=== PATIENT | female | born 1975 | race Caucasian/White ===

== ENCOUNTER 2021-01-12 03:22 | Emergency (ER) | payer SELFPAY ==
[~2021-01-12] VITALS: Ht 167.6 cm; Wt 94.5 kg
[2021-01-12] MEDS ORDERED: IV NORMAL SALINE 1000ML BAG 1,000 ML IV ONE ×2 (03:45)
--- NOTE | 2021-01-12 03:55 | PHYS DOC ---
Past Medical History Past Medical History: No Pertinent History Past Surgical History: No Surgical History Drug Use: Heroin General Adult EDM: Chief Complaint: OVERDOSE HPI: HPI: Patient is a 45 year old female who presents to the emergency department after [place]. Patient states that she took a "blue pill "and that is lasting she remembers. She denies any drug use, although security did find a bag of heroin on her person. She was given Narcan in the field when she was unresponsive with EMS with more arousability afterwards. Patient states now she feels embarrassed and anxious, she is adamantly refusing any medical work-up. She denies loss of consciousness. The patient denies nausea, vomiting, fever, chills, chest pain, shortness of breath, abdominal pain, urinary symptoms, cough or any other complaints. Review of Systems: Review of Systems: ROS otherwise negative except for what was mentioned in HPI Heart Score: C/O Chest Pain: No Current Medications: Current Medications Medications (Trade) Dose Ordered Sig/Zana Start Time Stop Time Status Last Admin Dose Admin Sodium Chloride 1,000 ml @ 1,000 mls/hr 1X ONCE 01/12/21 03:45 01/12/21 04:44 UNV Physical Exam: PE: Constitutional: Anxious, mild distress. HENT: Hematoma is appreciated to the left side of the forehead Eyes: PERRLA, EOMI, conjunctiva normal, no discharge. Neck: Normal range of motion, supple, no stridor. Cardiovascular: Tachycardic, 2+ radial pulse Lungs & Thorax: No respiratory distress, symmetrical expansion. Bilateral breath sounds clear to auscultation Abdomen: Soft, no tenderness Skin: Warm, dry. Extremities: No tenderness, no cyanosis, ROM intact, no edema. Neurologic: Alert and oriented X 3, normal motor function, normal sensory function, no focal deficits noted.. GCS 15. Psychologic: Tearful Current Patient Data: Vital Signs: Vital Signs Date Time Temp Pulse Resp B/P (MAP) Pulse Ox O2 Delivery O2 Flow Rate FiO2 01/12/21 03:22 98.7 141 22 166/93 (117) 100 Room Air 98.7 EKG: EKG: Time read: 0404 Sinus tachycardia rate of 127, no ST-T wave changes, no ectopic beats, normal axis, normal OK, QRS, and QTc intervals. Impression: Sinus tachycardia. No STEMI. Interpreted by me, Trino Schumacher D.O. Course & Med Decision Making: Course & Med Decision Making The patient does have medical decision-making capacity at this time, she is refusing labs and imaging. She is willing to stay for observation After Narcan. Given history of taking an unknown pill, tachycardia is likely due to coingestions with a stimulant. She was given 2 L of IV fluids patients hr down to 118, she is requesting discharge, I advised further observation but she has capacity and would like to leave. Understands leaving prior to obs period ending could result in and she reiterated and accepted these risks. Advised cessation of drugs. My Orders - TRINO SCHUMACHER DO Procedure Category Date Status Time Urine Test [facility] 01/12/21 In Process 03:28 Iv Normal Saline PHA 01/12/21 Complete 1000ml Bag (Iv Sodium 03:45 Iv Normal Saline PHA 01/12/21 Complete 1000ml Bag (Iv Sodium 03:45 Departure Departure Impression: Primary Impression: Heroin overdose Disposition: 01 HOME / SELF CARE / HOMELESS Patient Instructions: Heroin Abuse and Withdrawal Additional Instructions: You were seen in the emergency department and your health condition was deemed not to require admission to the hospital. It is important to realize that we can only evaluate you during the time that you are in her department. Occasionally health conditions can worsen upon leaving the emergency department. If this were to happen, please return to and allow us the opportunity to reevaluate you. It is a pleasure to take care of your health needs. Return to the ER if your symptoms worsen, do not improve, or if you develop additional symptoms that are concerning to you TRINO SCHUMACHER DO Jan 12, 2021 03:55
[2021-01-12 06:57] VITALS: BP 153/71
== END 2021-01-12 07:10 | disposition home or self-care (01) ==
LOC: ER 03:22
DX: T40.1X1A Poisoning by heroin, accidental (unintentional), initial encounter (principal); S00.83XA Contusion of other part of head, initial encounter; Y92.89 Other specified places as the place of occurrence of the external cause; F11.20 Opioid dependence, uncomplicated; X58.XXXA Exposure to other specified factors, initial encounter; Y93.89 Activity, other specified; Y99.8 Other external cause status
CPT/HCPCS: 96360; 99285; J7030